=== PATIENT | male | born 1935 | race Caucasian/White ===

== ENCOUNTER → 2020-01-15 | Outpatient (CLI) | payer MEDICARE ==
--- NOTE | 2020-01-15 15:44 | Diagnostic Imaging Report ---
EXAM: Renal Ultrasound INDICATION: ^[id number] ^1325 ^CYST OF KIDNEY COMPARISON: Abdominal MRI of 05/15/2019 TECHNIQUE: Transverse and longitudinal images of the kidneys and bladder were obtained. FINDINGS: Right Kidney: Length: 9.9 cm Appearance: Normal echogenicity. Collecting system: No hydronephrosis Stones: None Cyst/Mass: Mid pole 3.2 x 2.0 x 3.1 cm anechoic simple cyst Left Kidney: Length: 10.9 cm Appearance: Normal echogenicity. Collecting system: No hydronephrosis Stones: None Cyst/Mass: Upper pole 3.7 x 2.3 x 3.2 cm cyst with a thin internal septation. Additional smaller anechoic simple cysts measure up to 3 cm at the lower pole. Bladder: No mass or calculi. Ureteral jets not well visualized. Bladder volume estimate of 98 cc. The prostate measures 4.9 x 4.2 x 4.3 cm with volume estimate of 47 cc. Incidental note made of diffuse hepatic steatosis. IMPRESSION: 3.7 cm left lower pole renal cyst with a thin internal septation (Bosniak 2). Additional smaller bilateral anechoic simple renal cysts. Prostatomegaly. Hepatic steatosis. Signed by: Gordon Marcelino MD on 01/15/2020 3:40 PM
== END ==
LOC: US 12:57
PROVIDERS: ATTEND Urology
DX: N28.1 Cyst of kidney, acquired (principal)
CPT/HCPCS: 76770